=== PATIENT | female | born 2005 | race Caucasian/White ===

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

== ENCOUNTER 2025-07-26 09:56 | Outpatient (CLI) | payer OTHER, SELFPAY ==
--- NOTE | 2025-08-16 16:57 | WPDHOLTEREM ---
Holter/Event Monitor Holter/Event Monitor Date of procedure: 07/26/25 Holter/Event Procedure: Event Monitor Indications: Palpitations Conclusion: 1. 14 days event monitor on 07/26/25. 2. Underlying rhythm is sinus rhythm. HR range 48-168 bpm; average HR 82 bpm. HR at 48 bpm was on 08/08/25 at 6:29 am. HR at 168 bpm was on 07/31/25 at 5:58 pm. 3. There are rare premature supraventricular complexes. No supraventricular tachycardia. 4. There are rare premature ventricular complexes and rare ventricular triplets. No ventricular tachycardia. 5. No significant pauses greater than 3 seconds. 6. No symptoms available for correlation.
== END 2025-07-26 09:57 | disposition home or self-care (01) ==
LOC: CHSCARD 09:57
PROVIDERS: PCP Family Medicine; Visit Provider Family Medicine
DX: R00.2 Palpitations (principal)
CPT/HCPCS: 93246